=== PATIENT | male | born 1980 | race Caucasian/White ===

== ENCOUNTER 2018-11-18 17:05 | Emergency (ER) | payer BC ==
[~2018-11-18] VITALS: Ht 177.8 cm; Wt 103.1 kg
[2018-11-18 17:43] LABS: ABSOLUTE EOSINOPHILS 0.1 thou/uL (0.0-0.7); ABSOLUTE LYMPHOCYTES 1.7 thou/uL (0.8-5.3); ABSOLUTE MONOCYTES 0.5 thou/uL (0.0-1.2); ABSOLUTE NEUTROPHILS 2.9 thou/uL (1.6-8.1); BASOPHILS 0.7 %; EOSINOPHILS 2.7 %; HEMATOCRIT 43.4 % (42.0-52.0); LYMPHOCYTES 32.3 %; MCH 31.1 pg (26.0-34.0); MCHC 34.5 g/dL (28.0-37.0); MCV 90.2 fL (80.0-100.0); MONOCYTES 8.8 %; MPV 9.4 fl. (7.2-11.1); NUCLEATED RBCS 0 /100WBC; PLATELET COUNT* 206 thou/uL (150-400); POLYS 55.5 %; RBC 4.81 mil/uL (4.50-6.00); RDW-CV 12.6 % (10.5-14.5); WBC 5.2 thou/uL (4.0-11.0)
[2018-11-18 17:50] LABS: ANION GAP 10 mmol/L (7-16); BUN 26 mg/dL (7-18); CALCIUM 8.6 mg/dL (8.5-10.1); CHLORIDE 103 mmol/L (98-107); CO2 28 mmol/L (21-32); CREATININE 1.2 mg/dL (0.6-1.3); GLUCOSE 129 mg/dL (70-99); POTASSIUM 3.7 mmol/L (3.5-5.1); SODIUM 141 mmol/L (136-145)
[2018-11-18 17:59] LABS: ALKALINE PHOSPHATASE 67 U/L (46-116); LIPASE 108 U/L (73-393); MAGNESIUM 1.9 mg/dL (1.8-2.4); SGOT 15 U/L (15-37); SGPT 37 U/L (30-65); TOTAL BILIRUBIN 0.5 mg/dL (<0.1-1.0); TOTAL PROTEIN 7.3 g/dL (6.4-8.2); TROPONIN-I LEVEL <0.06 ng/mL (<0.06)
[2018-11-18 20:38] VITALS: BP 128/90
--- NOTE | 2018-11-19 12:21 | EKG ---
[place] [address] ELECTROCARDIOGRAM REPORT Name: LISA BURDEN [id number] Admission: 11/18/18 Attend Phys: Discharge: 11/18/18 Date of : 80 Report #: [id number] THIS REPORT FOR: //name// [facility] ED Test Date: 2018-11-18 Test Time: 17:09:35 Pat Name: LISA BURDEN Department: Room: Gender: M [employer]er: AUGUSTUS : 1980 Requested By: Bill Galicia Order Number: [id number] MD: Jaiden Doyle Measurements Intervals [place] Rate: 96 P: 55 UT: 183 QRS: 42 QRSD: 106 T: 39 QT: 365 QTc: 462 Interpretive Statements Sinus rhythm No previous ECG available for comparison Electronically Signed On 11-19-2018 12:21:19 CDT by Jaiden Doyle [email or web address] <ELECTRONICALLY SIGNED> By: Jaiden Doyle MD, [facility] 11/19/18 1221 1709 1709 Jaiden Doyle MD, FACC /EPI
== END 2018-11-18 20:40 | disposition home or self-care (01) ==
LOC: M.ERS 17:05
PROVIDERS: Emergency Medicine Emergency Medical Services
DX: R07.2 Precordial pain (principal); Z88.0 Allergy status to penicillin